=== PATIENT | female | born 1955 | race Caucasian/White ===

== ENCOUNTER 2021-08-31 17:33 | Emergency (ER) | payer OTHER ==
[~2021-08-31] VITALS: Ht 147.3 cm; Wt 49.9 kg
[2021-08-31 17:47] VITALS: BP 142/77
--- NOTE | 2021-08-31 18:10 | NUR ---
CANCELLED URINE AND CT PER PATIENT'S REQUEST
[2021-08-31 18:23] LABS: BILIRUBIN,URINE Negative (NEGATIVE); COLOR,URINE YELLOW (YELLOW); LEUKOCYTE ESTERASE ,URINE Small (NEGATIVE); NITRITE, URINE Negative (NEGATIVE); PROTEIN,URINE 100 mg/dl (NEGATIVE); UGLUCOSE Negative (NEGATIVE); UROBILINOGEN,URINE 0.2 EU/dL (0.2)
[2021-08-31 18:36] LABS: BACTERIA,URINE Moderate /HPF (None Seen); SQUAMOUS EPITHELIAL CELL,UR Moderate /HPF (None Seen)
[2021-08-31 18:39] LABS: BASOPHILS % (AUTO) 0.3 % (0.0-2.0); EOSINOPHILS % (AUTO) 3.5 % (0.0-6.0); HEMATOCRIT 31 % (33-45); HEMOGLOBIN 9.8 g/dL (11.5-14.8); LYMPHOCYTES # (AUTO) 1.1 K/uL (0.8-4.8); LYMPHOCYTES % (AUTO) 10.1 % (20.0-44.0); MEAN CORPUSCULAR HGB CONC 32 g/dl (31.0-36.0); MEAN CORPUSCULAR VOLUME 80 fL (82-100); MONOCYTES # (AUTO) 0.8 K/uL (0.1-1.30); MONOCYTES % (AUTO) 7.1 % (2.0-12.0); NEUTROPHILS # (AUTO) 8.9 K/uL (1.8-8.9); PLATELET COUNT (AUTO) 477 K/uL (150-450); RED BLOOD CELL COUNT(AUTO) 3.87 MIL/uL (4.0-5.2); WHITE BLOOD COUNT (AUTO) 11.2 K/uL (4.3-11.0)
[2021-08-31 18:45] LABS: CALCIUM, SERUM 9.5 mg/dL (8.5-10.1); CREATININE 0.6 mg/dL (0.6-1.3); POTASSIUM 3.6 mmol/L (3.5-5.1)
[2021-08-31] MEDS ORDERED: LIDOCAINE /MPF 1% VIAL 5 ML VIAL ONE (18:46)
[2021-08-31] MEDS ORDERED: CEFTRIAXONE 1 G VIAL ONE (18:46)
[2021-08-31 18:50] LABS: ALBUMIN 3.1 g/dL (3.4-5.0); BILIRUBIN,DIRECT 0.1 mg/dL (0.0-0.2); BILIRUBIN,TOTAL 0.2 mg/dL (0.2-1.0); TOTAL PROTEIN, SERUM 7.6 g/dL (6.4-8.2)
[2021-08-31] MEDS ORDERED: CEFTRIAXONE 1 G VIAL IM ONE (19:00)
[2021-08-31] MEDS ORDERED: PHEN-705 PO (19:13)
[2021-08-31] MEDS ORDERED: CEPH250C PO (19:16)
[2021-08-31] MEDS ORDERED: CEPH500C2 PO (19:16)
[2021-08-31] MEDS ORDERED: MUPI22OI2 TP ×2 (19:18→19:22)
--- NOTE | 2021-08-31 19:29 | NUR ---
Patient discharged to home in stable condition. Written and verbal after care instructions given. Patient verbalizes understanding of instruction.
== END 2021-08-31 19:29 | disposition home or self-care (01) ==
LOC: ER 17:45
DX: N39.0 Urinary tract infection, site not specified (principal); Z98.890 Other specified postprocedural states; Z88.8 Allergy status to other drugs, medicaments and biological substances; Z91.013 Allergy to seafood
CPT/HCPCS: 36415; 80048; 80076; 81001; 83690; 85025; 87077; 87086; 96372; 99283; J0696; J3490

== ENCOUNTER → 2024-12-25 | Emergency (ER) | payer BC, OTHER ==
[~2024-12-25] MED LIST: CEPH250C PO; CEPH500C2 PO; MUPI22OI2 TP; PHEN-705 PO
== END ==
LOC: ER 18:42
DX: H57.10 Ocular pain, unspecified eye (principal); Z53.21 Procedure and treatment not carried out due to patient leaving prior to being seen by health care provider

== ENCOUNTER 2025-08-11 11:50 | Emergency (ER) | payer BC ==
[~2025-08-11] VITALS: Ht 149.9 cm; Wt 55.3 kg
[2025-08-11 11:55] VITALS: TEMP 98.2
[2025-08-11 12:08] VITALS: O2SAT 99
[2025-08-11] MEDS: ALBUTEROL FS 2.5 MG/3 ML VIAL.NEB CONTNEB ONE (12:08)
[2025-08-11] MEDS: IPRATROPIUM NEB FS 0.5 MG/2.5 ML AMPUL.NEB NEB ONE (12:08)
[2025-08-11] MEDS ORDERED: IPRATROPIUM NEB FS 0.5 MG/2.5 ML AMPUL.NEB ONE (12:10)
[2025-08-11] MEDS ORDERED: ALBUTEROL FS 2.5 MG/3 ML VIAL.NEB ONE (12:10)
[2025-08-11 12:29] VITALS: O2SAT 99
[2025-08-11 13:07] VITALS: BP 150/77; O2SAT 99
[2025-08-11] MEDS ORDERED: ALBU18HF2 INH (13:08)
[2025-08-11] MEDS ORDERED: PRED50TA PO (13:08)
[2025-08-11] MEDS ORDERED: AZIT1PAC9 PO (13:08)
== END 2025-08-11 13:16 | disposition home or self-care (01) ==
LOC: ER 12:01
DX: J45.909 Unspecified asthma, uncomplicated (principal); J06.9 Acute upper respiratory infection, unspecified; F17.200 Nicotine dependence, unspecified, uncomplicated; Z88.8 Allergy status to other drugs, medicaments and biological substances; Z91.013 Allergy to seafood
CPT/HCPCS: 99284; 71045; 73564; 94640; J7512